=== PATIENT | male | born 1980 | race Caucasian/White ===

== ENCOUNTER 2017-09-02 05:59 | Emergency (ER) | payer BC ==
[2017-09-02] MEDS ORDERED: FENTANYL CITR 100 MCG/2 ML ONE ×2 (06:33→07:35)
[2017-09-02] MEDS ORDERED: CIPROFLOXACIN 400mg IV 400 MG/200 ML BAG IV ONE (06:34)
[2017-09-02] MEDS ORDERED: METRONIDAZOLE 500mg IVPB 500 MG/100 ML BAG IV ONE (06:34)
[2017-09-02] MEDS ORDERED: NA CHLORIDE 0.9% 1,000 ML ONE (06:34)
[2017-09-02 06:38] LABS: Absolute Lymphocytes (CBC) 1.4 K/uL (0.7-4.9); Absolute Monocytes 0.6 K/uL (0.1-1.3); Absolute Neutrophil 7.9 K/uL (1.8-8.0); Basophils % 0.3 % (0-1.3); Eosinophils % 0.5 % (0-4.4); Lymphocytes % 13.9 % (15.3-44.8); MCH 32.1 pg (27.0-35.0); MCV 89.3 fL (80-100); MPV 7.9 fL (7.6-11.3); Monocytes % 5.6 % (3.3-12.3); RBC Red Blood Cell Count 4.81 M/uL (4.33-5.43)
[2017-09-02 06:55] LABS: Albumin 4.3 g/dL (3.4-5.0); Bilirubin Direct 0.1 mg/dL (0-0.2); Bilirubin Total 0.5 mg/dL (0.2-1.0); Potassium 4.1 mmol/L (3.5-5.1); Protein, Total 7.8 g/dL (6.4-8.2)
--- NOTE | 2017-09-02 08:40 | RAD REPORT ---
EXAM DESCRIPTION: CTAbdomen Pelvis W Contrast - 09/02/2017 8:26 am CLINICAL HISTORY: Abdominal pain. ABD PAIN COMPARISON: CT ABD PELVIS W CONTRAST dated 07/10/2009 TECHNIQUE: Biphasic CT imaging of the abdomen and pelvis was performed with 100 ml non-ionic IV cont rast. All CT scans are performed using dose optimization technique as appropriate and may include automated exposure control or mA/KV adjustment according to patient size. FINDINGS: The lung bases are clear. The liver contains a small low-density lesion in the right lobe measuring the 12 mm, likely a benign hemangioma. Additional small low-density liver lesions are also present, incompletely assessed due to small size. The spleen, pancreas, adrenal glands and kidneys are within normal limits. No bowel obstruction, free air, free fluid or abscess. Moderate retention of stool in the colon. Appe ndectomy. No evidence of significant lymphadenopathy. Mild lumbosacral degenerative changes. IMPRESSION: No acute intra-abdominal or pelvic finding.
[2017-09-02] MEDS ORDERED: BISACODYL 10 MG RECTAL SUPP ONE (09:02)
[2017-09-02] MEDS ORDERED: BISACODYL E.C. 5 MG TAB PO ONE (09:02)
--- NOTE | 2017-09-02 09:09 | ER ---
Nurse's Notes [facility] Name: Phani Parson Age: 37 yrs Sex: Male : 1980 Arrival Date: 09/02/2017 Time: 06:00 Bed 18 Private MD: Diagnosis: Abdominal tenderness;Constipation Presentation: 09/02 06:15 Presenting complaint: Patient states: "I'm having a severe colitis attack" pt states he bb is having LLQ pain "almost vomited", pain is 9/10 can't sleep. Transition of care: patient was not received from another setting of care. Onset of symptoms was September 02, 2017. Risk Assessment: Do you want to hurt yourself or someone else? Patient reports no desire to harm self or others. Initial Sepsis Screen: Does the patient meet any 2 criteria? No. Patient's initial sepsis screen is negative. Does the patient have a suspected source of infection? No. Patient's initial sepsis screen is negative. Care prior to arrival: None. 06:15 Method Of Arrival: Ambulatory bb 06:15 Acuity: NATALIE 3 bb Historical: - Allergies: 06:18 PENICILLINS; bb - Home Meds: 06:18 None [Active]; bb - PMHx: 06:18 colitis; bb - PSHx: 06:18 bilateral hands; Appendectomy; club foot; cleft palate; rhinoplasty; bb - Immunization history:: Adult Immunizations up to date. - Social history:: Smoking status: Patient/guardian denies using tobacco, Patient uses alcohol, occasionally. Patient/guardian denies using street drugs. - Ebola Screening: : No symptoms or risks identified at this time. Screenin:15 Abuse screen: Denies threats or abuse. Denies injuries from another. Nutritional aa1 screening: No deficits noted. Tuberculosis screening: No symptoms or risk factors identified. Fall Risk None identified. Assessment: 06:15 General: Appears in no apparent distress. uncomfortable, Behavior is appropriate for aa1 age, restless. Pain: Complains of pain in left lower quadrant Pain currently is 9 out of 10 on a pain scale. Quality of pain is described as stabbing. 06:15 Pain: Pain began 4 hours ago. Is continuous. Neuro: Level of Consciousness is awake, aa1 alert, obeys commands, Oriented to person, place, time, situation, Gait is steady. Respiratory: Airway is patent Respiratory effort is even, unlabored, Respiratory pattern is regular, symmetrical. GI: Abdomen is non-distended, Bowel sounds present X 4 quads. Abd is soft X 4 quads Abdomen is tender to palpation in left lower quadrant Reports lower abdominal pain, diarrhea. : No signs and/or symptoms were reported regarding the genitourinary system. EENT: No signs and/or symptoms were reported regarding the EENT system. Derm: Skin is intact, is healthy with good turgor, Skin is pink, warm \\T\\ dry. Musculoskeletal: Circulation, motion, and sensation intact. Capillary refill is > 3 seconds. 06:47 Reassessment: Notified Reyna in CT that pt finished with PO contrast. aa1 07:15 Neuro: Level of Consciousness is awake, alert, obeys commands, Oriented to person, aa5 place, time, situation. Cardiovascular: Heart tones S1 S2 present Rhythm is regular. Respiratory: Airway is patent Respiratory effort is even, unlabored, Respiratory pattern is regular, symmetrical. GI: Abdomen is flat, non-distended, Bowel sounds present X 4 quads. Abdomen is tender to palpation in left lower quadrant Reports nausea, Patient currently denies diarrhea, vomiting. : No signs and/or symptoms were reported regarding the genitourinary system. EENT: No signs and/or symptoms were reported regarding the EENT system. Derm: Skin is pink, warm \\T\\ dry. Musculoskeletal: Range of motion: intact in all extremities. 07:15 General: Appears uncomfortable, Behavior is calm, cooperative. aa5 07:15 Pain: Complains of pain in left lower quadrant Pain does not radiate. Pain currently is aa5 7 out of 10 on a pain scale. Quality of pain is described as sharp, stabbing, Pain began this morning Is continuous. 07:42 Reassessment: Patient is alert, oriented x 3, equal unlabored respirations, skin aa5 warm/dry/pink. Pt unable to provide urine specimen at this time, will attempt later. Awaiting CT scan, pt notified of wait time. . 08:10 Reassessment: Patient and/or family updated on plan of care and expected duration. Pain aa5 level reassessed. Patient is alert, oriented x 3, equal unlabored respirations, skin warm/dry/pink. Patient states feeling better. Patient states symptoms have improved. Pain: Pain currently is 3 out of 10 on a pain scale. 08:29 Reassessment: Pt back from CT scan via wheelchair . aa5 Vital Signs: 06:18 BP 165 / 106; Pulse 73; Resp 18 S; Temp 97.7(O); Pulse Ox 100% on R/A; Weight 77.11 kg bb (R); Height 5 ft. 11 in. (180.34 cm) (R); Pain 9/10; 07:08 BP 148 / 95; Pulse 71; Resp 18; Pulse Ox 100% on R/A; mh5 07:18 Temp 97.7(O); aa5 08:16 BP 145 / 91; Pulse 61; Resp 18 S; Pulse Ox 99% on R/A; Pain 3/10; aa5 06:18 Body Mass Index 23.71 (77.11 kg, 180.34 cm) ED Course: 06:00 Patient arrived in ED. ds1 06:10 Initial lab(s) drawn, by me, sent to lab. Inserted saline lock: 20 gauge in right aa1 antecubital area, using aseptic technique. Blood collected. 06:13 [facility]C [facility]. snw 06:13 Beryl Hurtado MD is Attending Physician. snw 06:15 Patient has correct armband on for positive identification. Bed in low position. Call aa1 light in reach. Pulse ox on. NIBP on. Warm blanket given. 06:17 Triage completed. bb 06:18 Arm band placed on Patient placed in an exam room, on a stretcher. bb 06:21 Chani Gtz, RN is Primary Nurse. aa1 06:57 Report given to Analilia Granados RN. aa1 07:00 Report received from PAMELA Wilde. aa5 07:01 Analilia Granados, RN is Primary Nurse. aa5 08:22 CT completed. Patient tolerated procedure well. Patient moved to CT via wheelchair. sj Patient moved back from CT. 08:26 CT Abd/Pelvis - W/Contrast In Process Unspecified. EDMS 09:08 Stepan Valdez MD is Referral Physician. snw 09:15 No provider procedures requiring assistance completed. IV discontinued, intact, aa5 bleeding controlled, No redness/swelling at site. Pressure dressing applied. Administered Medications: 06:39 Drug: fentaNYL (PF) 50 mcg Route: IVP; Site: right antecubital; aa1 07:15 Follow up: Response: No adverse reaction aa5 06:39 Drug: Flagyl 500 mg Volume: 100 ml; Route: IVPB; Rate: 200 ml/hr; Infused Over: 30 aa1 mins; Site: right antecubital; 07:15 Follow up: Response: No adverse reaction; IV Status: Completed infusion aa5 06:39 Drug: Cipro 400 mg Volume: 200 ml; Route: IVPB; Infused Over: 60 mins; Site: right aa1 antecubital; 07:40 Follow up: Response: No adverse reaction; IV Status: Completed infusion aa5 06:40 Drug: NS 0.9% 1000 ml Route: IV; Rate: 1 bolus; Site: right antecubital; aa1 07:15 Follow up: IV Status: Completed infusion aa5 07:36 Drug: fentaNYL (PF) 50 mcg Route: IVP; Site: right antecubital; aa5 08:00 Follow up: Response: No adverse reaction; Pain is decreased aa5 08:57 Drug: Dulcolax Suppository 10 mg Route: AR; aa5 09:15 Follow up: Response: No adverse reaction aa5 08:57 Drug: Bisacodyl 5 mg Route: PO; aa5 09:15 Follow up: Response: No adverse reaction aa5 08:57 Drug: Bisacodyl 5 mg Route: PO; aa5 09:15 Follow up: Response: No adverse reaction aa5 Outcome: 09:08 Discharge ordered by MD. sanderson 09:20 Discharged to home ambulatory. aa5 09:20 Condition: improved 09:20 Discharge instructions given to patient, Instructed on discharge instructions, follow up and referral plans. medication usage, Demonstrated understanding of instructions, follow-up care, medications, Prescriptions given X 4. 09:28 Patient left the ED. jb1 Signatures: Dispatcher [employer] EDYoav Flores jb1 Chani Gtz, RN RN aa1 Kylie Bah, FENCE SUPERVISOR-C FENCE SUPERVISOR-Yasmin Blancas Demi ds1 Chanda Quan RN RN bb Analilia Granados RN RN aa5 Xena Amaya 5 Corrections: (The following items were deleted from the chart) 07: 07:15 General: Appears uncomfortable, Behavior is calm, cooperative, aa5 aa5 07:26 07:15 Pain: Complains of pain in left lower quadrant Pain does not radiate. Pain aa5 currently is 7 out of 10 on a pain scale. Quality of pain is described as sharp, stabbing, Pain began this morning Is continuous, aa5 08:16 08:10 Reassessment: Patient and/or family updated on plan of care and expected aa5 duration. Pain level reassessed. Patient is alert, oriented x 3, equal unlabored respirations, skin warm/dry/pink. Patient states feeling better. Patient states symptoms have improved. aa5 09:34 09:20 Discharge instructions given to patient, Instructed on discharge instructions, aa5 follow up and referral plans. medication usage, Demonstrated understanding of instructions, follow-up care, medications, Prescriptions given X 3, aa5
--- NOTE | 2017-09-02 09:09 | EDPHYS ---
Physician Documentation [facility] Name: Phani Parson Age: 37 yrs Sex: Male : 1980 Arrival Date: 09/02/2017 Time: 06:00 Bed 18 Private MD: ED Physician Beryl Hurtado HPI: 09/02 06:21 This 37 yrs old Male presents to ER via Ambulatory with complaints of snw Abdominal Pain. 06:21 The patient presents with abdominal pain in the lower abdomen, in the left lower snw quadrant. Onset: The symptoms/episode began/occurred suddenly, yesterday. The symptoms do not radiate. Associated signs and symptoms: Pertinent positives: nausea. The symptoms are described as sharp, stabbing. Severity of pain: At its worst the pain was severe incapacitating in the emergency department the pain is unchanged. The patient has experienced similar episodes in the past. The patient has not recently seen a physician. sees Dr. Valdez. Historical: - Allergies: 06:18 PENICILLINS; bb - Home Meds: 06:18 None [Active]; bb - PMHx: 06:18 colitis; bb - PSHx: 06:18 bilateral hands; Appendectomy; club foot; cleft palate; rhinoplasty; bb - Immunization history:: Adult Immunizations up to date. - Social history:: Smoking status: Patient/guardian denies using tobacco, Patient uses alcohol, occasionally. Patient/guardian denies using street drugs. - Ebola Screening: : No symptoms or risks identified at this time. ROS: 06:19 Constitutional: Negative for fever, chills, and weight loss, Eyes: Negative for injury, snw pain, redness, and discharge, ENT: Negative for injury, pain, and discharge, Neck: Negative for injury, pain, and swelling, Cardiovascular: Negative for chest pain, palpitations, and edema, Respiratory: Negative for shortness of breath, cough, wheezing, and pleuritic chest pain, Abdomen/GI: positive for abdominal pain, nausea, frequent stools, negative for vomiting and constipation, Back: Negative for injury and pain, : Negative for injury, bleeding, discharge, and swelling, MS/Extremity: Negative for injury and deformity, Skin: Negative for injury, rash, and discoloration, Neuro: Negative for headache, weakness, numbness, tingling, and seizure. Exam: 06:19 Constitutional: This is a well developed, well nourished patient who is awake, alert, snw and in no acute distress. Head/Face: Normocephalic, atraumatic. Eyes: Pupils equal round and reactive to light, extra-ocular motions intact. Lids and lashes normal. Conjunctiva and sclera are non-icteric and not injected. Cornea within normal limits. Periorbital areas with no swelling, redness, or edema. ENT: Nares patent. No nasal discharge, no septal abnormalities noted. Tympanic membranes are normal and external auditory canals are clear. Oropharynx with no redness, swelling, or masses, exudates, or evidence of obstruction, uvula midline. Mucous membranes moist. Neck: Trachea midline, no thyromegaly or masses palpated, and no cervical lymphadenopathy. Supple, full range of motion without nuchal rigidity, or vertebral point tenderness. No Meningismus. Chest/axilla: Normal chest wall appearance and motion. Nontender with no deformity. No lesions are appreciated. Cardiovascular: Regular rate and rhythm with a normal S1 and S2. No gallops, murmurs, or rubs. Normal PMI, no JVD. No pulse deficits. Respiratory: Lungs have equal breath sounds bilaterally, clear to auscultation and percussion. No rales, rhonchi or wheezes noted. No increased work of breathing, no retractions or nasal flaring. Back: No spinal tenderness. No costovertebral tenderness. Full range of motion. Skin: Warm, dry with normal turgor. Normal color with no rashes, no lesions, and no evidence of cellulitis. MS/ Extremity: Pulses equal, no cyanosis. Neurovascular intact. Full, normal range of motion. Neuro: Awake and alert, GCS 15, oriented to person, place, time, and situation. Cranial nerves II-XII grossly intact. Motor strength 5/5 in all extremities. Sensory grossly intact. Cerebellar exam normal. Normal gait. 06:19 Abdomen/GI: Inspection: abdomen appears normal, Bowel sounds: diminished, Palpation: moderate abdominal tenderness, severe abdominal tenderness, in the left lower quadrant. Vital Signs: 06:18 BP 165 / 106; Pulse 73; Resp 18 S; Temp 97.7(O); Pulse Ox 100% on R/A; Weight 77.11 kg bb (R); Height 5 ft. 11 in. (180.34 cm) (R); Pain 9/10; 07:08 BP 148 / 95; Pulse 71; Resp 18; Pulse Ox 100% on R/A; mh5 07:18 Temp 97.7(O); aa5 08:16 BP 145 / 91; Pulse 61; Resp 18 S; Pulse Ox 99% on R/A; Pain 3/10; aa5 06:18 Body Mass Index 23.71 (77.11 kg, 180.34 cm) MDM: 06:13 Patient medically screened. snw 08:28 Data reviewed: vital signs, nurses notes. Data interpreted: Pulse oximetry: on room air snw is 99 %. Interpretation: normal. Awaiting: CT scan results. 09/02 06:19 Order name: Amylase, Serum; Complete Time: 07:01 snw 09/02 06:19 Order name: Basic Metabolic Panel; Complete Time: 07:01 snw 09/02 06:19 Order name: CBC with Diff; Complete Time: 07:01 snw 09/02 06:19 Order name: Creatinine for Radiology; Complete Time: 07:01 snw 09/02 06:19 Order name: Hepatic Function; Complete Time: 07:01 snw 09/02 06:19 Order name: Lipase; Complete Time: 07:01 snw 09/02 06:19 Order name: Urine Microscopic Only snw 09/02 09:14 Order name: Urine Dipstick--Ancillary (enter results) bd 09/02 06:19 Order name: CT Abd/Pelvis - W/Contrast; Complete Time: 08:44 snw 09/02 06:19 Order name: IV Saline Lock; Complete Time: 06:21 snw 09/02 06:19 Order name: Labs collected and sent; Complete Time: 06:21 snw 09/02 06:19 Order name: Urine Dipstick-Ancillary (obtain specimen); Complete Time: 09:17 snw Administered Medications: 06:39 Drug: fentaNYL (PF) 50 mcg Route: IVP; Site: right antecubital; aa1 07:15 Follow up: Response: No adverse reaction aa5 06:39 Drug: Flagyl 500 mg Volume: 100 ml; Route: IVPB; Rate: 200 ml/hr; Infused Over: 30 aa1 mins; Site: right antecubital; 07:15 Follow up: Response: No adverse reaction; IV Status: Completed infusion aa5 06:39 Drug: Cipro 400 mg Volume: 200 ml; Route: IVPB; Infused Over: 60 mins; Site: right aa1 antecubital; 07:40 Follow up: Response: No adverse reaction; IV Status: Completed infusion aa5 06:40 Drug: NS 0.9% 1000 ml Route: IV; Rate: 1 bolus; Site: right antecubital; aa1 07:15 Follow up: IV Status: Completed infusion aa5 07:36 Drug: fentaNYL (PF) 50 mcg Route: IVP; Site: right antecubital; aa5 08:00 Follow up: Response: No adverse reaction; Pain is decreased aa5 08:57 Drug: Dulcolax Suppository 10 mg Route: VA; aa5 09:15 Follow up: Response: No adverse reaction aa5 08:57 Drug: Bisacodyl 5 mg Route: PO; aa5 09:15 Follow up: Response: No adverse reaction aa5 08:57 Drug: Bisacodyl 5 mg Route: PO; aa5 09:15 Follow up: Response: No adverse reaction aa5 Disposition: 09/02/17 09:08 Discharged to Home. Impression: Abdominal tenderness, Constipation. - Condition is Stable. - Discharge Instructions: Abdominal Pain, Adult, Constipation, Adult. - Prescriptions for Bentyl 20 mg Oral Tablet - take 1 tablet by ORAL route every 6 hours As needed; 20 tablet. Flagyl 500 mg Oral Tablet - take 1 tablet by ORAL route every 8 hours for 10 days; 30 tablet. Cipro 500 mg Oral Tablet - take 1 tablet by ORAL route every 12 hours for 7 days; 14 tablet. Miralax 17 gram/dose Oral - take 1 packet by ORAL route once daily dilute powder in 8 ounces of water or juice; 1 box. - Work release form, Medication Reconciliation Form, Thank You Letter, Antibiotic Education, Prescription Opioid Use form. - Follow up: Private Physician; When: 2 - 3 days; Reason: Recheck today's complaints, Continuance of care, Re-evaluation by your physician. Follow up: Stepan Valdez MD; When: 1 - 2 days; Reason: Continuance of care, Re-evaluation by your physician. Addendum: 10/27/2017 21:27 Co-signature as Attending Physician, Beryl Hurtado MD. m a2 Signatures: Dispatcher [employer] Yoav Canchola jb1 Chani Gtz, RN RN aa1 Kylie Bah, CONTROL SUPERVISOR-C CONTROL SUPERVISOR-Csnw Chanda Quan, RN RN bb Analilia Granados RN RN aa5 Beryl Hurtado MD MD ma2 Corrections: (The following items were deleted from the chart) 09/02 09:28 09:08 09/02/2017 09:08 Discharged to Home. Impression: Abdominal tenderness; jb1 Constipation. Condition is Stable. Forms are Medication Reconciliation Form, Thank You Letter, Antibiotic Education, Prescription Opioid Use. Follow up: Private Physician; When: 2 - 3 days; Reason: Recheck today's complaints, Continuance of care, Re-evaluation by your physician. Follow up: Stepan Valdez; When: 1 - 2 days; Reason: Continuance of care, Re-evaluation by your physician. snw
[2017-09-02 09:43] LABS: Urine Blood NEGATIVE (NEG); Urine Glucose NEGATIVE (NEG); Urine Protein 1+ (NEG); Urine Specific Gravity 1.015 (1.005-1.030)
[2017-09-02 09:45] LABS: Urine Bacteria NONE SEEN /HPF (NONE SEEN); Urine Culture Reflex Order NOT NEEDED; Urine Mucus 1+ /HPF (NONE SEEN); Urine RBC NONE SEEN /HPF (NONE SEEN)
== END 2017-09-02 09:28 | disposition home or self-care (01) ==
LOC: ER 05:59
DX: K59.00 Constipation, unspecified (principal); Z88.0 Allergy status to penicillin
CPT/HCPCS: 36415; 74177; 80048; 80076; 81003; 81015; 82150; 83690; 85025; 96365; 96368; 96375; 99284; J0744; J3010; J7030; Q9967